=== PATIENT | male | born 1995 | race Caucasian/White ===

== ENCOUNTER 2021-02-02 15:35 | Emergency (ER) | payer OTHER, SELFPAY ==
[2021-02-02 15:42] VITALS: BP 119/68; PULSE 82; RESP 16; TEMP 36.6; O2SAT 100
--- NOTE | 2021-02-02 15:46 | ED.URI ---
HPI - URI/Sore Throat General Chief Complaint: Ear Stated Complaint: ear pressure Time Seen by Provider: 02/02/21 15:46 Source: patient and RN notes reviewed Mode of arrival: ambulatory Limitations: no limitations History of Present Illness HPI Narrative: Neeraj is a 25-year-old male patient who ambulated into the [facility] accompanied by his significant other. Patient has a 4-day history of right ear pain and pressure. Patient has chronic ear problems and has had 2 sets of tubes in the past. Patient denies any fever. Patient states he has had nasal congestion for the last few days. Patient has not been taking any yzuf-csh-fpepyix allergy medication; patient has used hot compress for pain relief. MD elicited complaint: nasal congestion and other (Ear pain) Related Data Allergies Allergy/AdvReac Type Severity Reaction Status Date / Time No Known Allergies Allergy Unverified 03/10/19 17:11 Review of Systems Review of Systems: CONSTITUTIONAL: Denies body aches, fever, chills, or sweats. EYES: Denies visual changes, redness, or discharge. ENT: + rhinorrhea, +congestion, sore throat,+ right otalgia. CARDIOVASCULAR: Denies chest pain, palpitations, or edema. RESPIRATORY: Denies cough or dyspnea. GASTROINTESTINAL: Denies abdominal pain, nausea, vomiting, or diarrhea. GENITOURINARY: Denies dysuria or hematuria. SKIN: Denies rash, itching, or wounds. MUSCULOSKELETAL: Denies back pain, joint pain, or myalgia. NEUROLOGIC: Denies headache, numbness, tingling, or weakness. PSYCH: Denies depression or anxiety. All systems reviewed & are unremarkable except as noted in HPI and below PMFSH Surgical History Surgical History Status post myringotomy with tube placement of both ears Comments At time of signature, I have reviewed and agree with nursing past medical, surgical, social and family history unless otherwise noted. Please see nursing chart for further information. There is no relevant family history pertinent to the presenting complaint Exam Narrative: GENERAL: Well-appearing, well-nourished, and in no acute distress. HEAD: Normocephalic, atraumatic. EYES: EOMI. No redness or drainage. Conjunctivae normal. ENT: Mucous membranes pink and moist. Nares clear. No rhinorrhea. Right tympanic membrane is erythemic and bulging with moderate amount of fluid. Left tympanic membrane is dull with minimal fluid and no erythema. Oropharynx is erythemic with minimal edema and moderate drainage. Uvula midline. NECK: Normal AROM. Supple. No lymphadenopathy. CHEST: No respiratory distress. Clear to auscultation. MUSCULOSKELETAL: No bony tenderness. EXTREMITIES: Normal range of motion. No edema. SKIN: Warm, dry, no rash. Capillary refill normal. Normal skin turgor. NEURO: No focal deficits. Alert and oriented x3. Gait steady. PSYCH: Normal affect. No signs of depression or anxiety. Course Vital Signs Vital signs: Vital Signs Temperature 36.6 C 02/02/21 15:42 Pulse Rate 82 02/02/21 15:42 Respiratory Rate 16 02/02/21 15:42 Blood Pressure 119/68 02/02/21 15:42 Pulse Oximetry 100 02/02/21 15:42 Temperature 36.6 C 02/02/21 15:42 Pulse Rate 82 02/02/21 15:42 Respiratory Rate 16 02/02/21 15:42 Blood Pressure 119/68 02/02/21 15:42 Pulse Oximetry 100 02/02/21 15:42 Reviewed MDM - URI/Sore Throat MDM Narrative Medical decision making narrative: Patient's right ear is erythemic and bulging. Patient has a long history of ear problems. Patient has had tympanostomy tubes x2 Differential Diagnosis Differential diagnosis: Likely upper respiratory infection, otitis media, viral infection and pharyngitis Medical Records Attestation: I reviewed the patient's medical records. Critical Care Time Critical Care Time Critical Care Time: No Discharge Plan Discharge Clinical Impression: Otitis media Qualifiers: Otitis media type: suppura
== END 2021-02-02 16:05 | disposition home or self-care (01) ==
PROVIDERS: Emergency Provider Nurse Practitioner Family
DX: H66.001 Acute suppurative otitis media without spontaneous rupture of ear drum, right ear (principal)
CPT/HCPCS: 99213; G0463

== ENCOUNTER 2023-03-07 16:43 | Emergency (ER) | payer OTHER, SELFPAY ==
[2023-03-07 16:48] VITALS: BP 138/82; PULSE 83; RESP 20; TEMP 36.4; O2SAT 99
--- NOTE | 2023-03-07 16:48 | ED.GENADULT ---
HPI - General Adult General Chief complaint: Upper Respiratory Infection Stated complaint: congestion/ears Time Seen by Provider: 03/07/23 16:55 Source: patient, RN notes reviewed and old records reviewed Mode of arrival: ambulatory Limitations: no limitations History of Present Illness HPI narrative: 28-year-old male presents to the [facility] with complaints of ear pain and congestion. Patient states the ear discomfort has been moving from ear to ear depending on the side he sleeps on. Recently treated with Augmentin he believes he started the prescription on the 23 of February. States the symptoms did not improve. Patient states that he took his left over children's decongestant this morning with no relief States that he was taking Claritin which was helping his symptoms however he ran out a week ago Related Data Allergies Allergy/AdvReac Type Severity Reaction Status Date / Time No Known Allergies Allergy Unverified 03/10/19 17:11 Review of Systems Review of Systems: All systems reviewed & are unremarkable except as noted in HPI and below Constitutional: Constitutional: Reports no additional constitutional complaints Eyes: Eyes: Reports no additional eye complaints ENT: Reports as per HPI, Reports otalgia, Reports nasal congestion and Reports nasal discharge Cardiovascular: Cardiovascular: Reports no additional cardiovascular complaints, Denies chest pain and Denies dyspnea Respiratory: Respiratory: Reports no additional respiratory complaints, Denies chest congestion, Denies cough and Denies dyspnea Gastrointestinal: Gastrointestinal: Reports no additional gastrointestinal complaints, Denies abdominal pain, Denies nausea and Denies vomiting Musculoskeletal: Musculoskeletal: Reports no additional musculoskeletal complaints Integumentary/Breasts: Skin/Breast: Reports system reviewed and no additional complaints, except as docu Neurologic: Reports system reviewed and no additional complaints, except as documented Psychiatric: Psychiatric: Reports no additional psychiatric complaints Allergic/Immunologic: Allergic/Immunologic: Reports no additional allergic/immunologic complaints PMFSH Surgical History Surgical History Status post myringotomy with tube placement of both ears Comments At the time of my signature, I reviewed and agree with the nursing past medical, surgical, social, and family history. There is no relevant family history pertinent to the patient complaint. Exam Const: General: cooperative, healthy appearing, comfortable, no acute distress, well developed, alert and well nourished Nutritional Appearance: well nourished Orientation/consciousness: patient oriented x3 Limitations: no limitations HENMT: Head: normal to inspection Ears: hearing grossly normal bilaterally, external ears normal and TM abnormal bulging bilateral, wth effusion serous bilateral and scarred bilateral (History of tubes); not erythematous and with no loss of landmarks Face/Nose/Sinus: Normal external nose present, Normal nares present, Normal nasal mucous membranes and turbinates present, normal facial exam and face symmetric Face and sinus: normal facial exam and face symmetric Mouth: Yes Normal oral and palatal mucosa present, Yes lip normal, Yes tongue normal and Yes moist mucous membranes Throat: posterior oropharynx normal, uvula midline and postnasal drainage Eyes: General: appearance normal, both eyes and all related structures Alignment and Position: alignment normal Periorbital: periorbital findings normal Pupils: Equal, round and reactive pupils present EOM: EOMs intact bilaterally Neck: Neck: normal visual inspection, full ROM, no lymphadenopathy and no meningeal signs Chest: Chest palpation & inspection: normal inspection of the chest Resp: Effort & Inspection: normal respiratory effort and able to speak in complete sentences Auscultation: clear to ausc
== END 2023-03-07 17:18 | disposition home or self-care (01) ==
PROVIDERS: Emergency Provider Nurse Practitioner
DX: J06.9 Acute upper respiratory infection, unspecified (principal); H65.03 Acute serous otitis media, bilateral
CPT/HCPCS: 99213; G0463

== ENCOUNTER 2023-07-19 11:59 | Emergency (ER) | payer OTHER, SELFPAY ==
[2023-07-19 12:07] VITALS: BP 113/72; PULSE 74; RESP 18; TEMP 36.2; O2SAT 99
--- NOTE | 2023-07-19 12:27 | ED.ABDPAIN ---
HPI - Abdominal Pain General Chief Complaint: Urogenital-Male Stated Complaint: Urinary Problem/Abdominal Pain Time Seen by Provider: 07/19/23 12:27 Source: patient, RN notes reviewed and old records reviewed Mode of arrival: ambulatory Limitations: no limitations History of Present Illness HPI narrative: 28-year-old male presents to the [facility] with multiple complaints. States for the last 2 days his right lower abdominal pain has been increasing. Reports it was worse this morning, states that it feels like ?menstrual cramps woman would have. ? Denies fevers Related Data Allergies Allergy/AdvReac Type Severity Reaction Status Date / Time No Known Allergies Allergy Unverified 03/10/19 17:11 Review of Systems Review of Systems: All systems reviewed & are unremarkable except as noted in HPI and below Constitutional: Constitutional: Reports no additional constitutional complaints Eyes: Eyes: Reports no additional eye complaints ENT: Reports system reviewed and no additional complaints, except as documented Cardiovascular: Cardiovascular: Reports no additional cardiovascular complaints, Denies chest pain and Denies dyspnea Respiratory: Respiratory: Reports no additional respiratory complaints, Denies chest congestion, Denies cough and Denies dyspnea Gastrointestinal: Gastrointestinal: Reports as per HPI, Reports abdominal pain, Reports nausea and Denies vomiting Musculoskeletal: Musculoskeletal: Reports no additional musculoskeletal complaints Integumentary/Breasts: Skin/Breast: Reports system reviewed and no additional complaints, except as docu Neurologic: Reports system reviewed and no additional complaints, except as documented Psychiatric: Psychiatric: Reports no additional psychiatric complaints Allergic/Immunologic: Allergic/Immunologic: Reports no additional allergic/immunologic complaints PMFSH Surgical History Surgical History Status post myringotomy with tube placement of both ears Comments At the time of my signature, I reviewed and agree with the nursing past medical, surgical, social, and family history. There is no relevant family history pertinent to the patient complaint. Exam Const: General: cooperative, healthy appearing, comfortable, no acute distress, well developed, alert and well nourished Nutritional Appearance: well nourished Orientation/consciousness: patient oriented x3 Limitations: no limitations HENMT: Head: normal to inspection Ears: hearing grossly normal bilaterally and external ears normal Face/Nose/Sinus: Normal external nose present, Normal nares present, Normal nasal mucous membranes and turbinates present, normal facial exam and face symmetric Face and sinus: normal facial exam and face symmetric Eyes: General: appearance normal, both eyes and all related structures Alignment and Position: alignment normal Periorbital: periorbital findings normal Pupils: Equal, round and reactive pupils present EOM: EOMs intact bilaterally Neck: Neck: normal visual inspection, full ROM, no lymphadenopathy and no meningeal signs Chest: Chest palpation & inspection: normal inspection of the chest Resp: Effort & Inspection: normal respiratory effort and able to speak in complete sentences Auscultation: clear to auscultation bilaterally, no crackles, no rales, no rhonchi and no wheezes Cardio: Rate: regular rate Rhythm: regular rhythm GI: GI Palp: Yes abdominal tenderness (Right lower quadrant), Yes Soft to palpation and No Guarding due to palpation present (GI) Auscultation: normal bowel sounds : General: Yes no CVA tenderness Skin: General skin exam: normal color and no rashes or lesions noted Lesions: no lesions Rashes: no rashes Wounds: no wounds Neuro: General: patient oriented x3, gait normal, tone normal, moves all extremities and no meningeal signs Cranial nerves: Yes Equal, round and reactive pupils present Cogniti
== END 2023-07-19 12:40 | disposition short-term general hospital (02) ==
LOC: EXPBETH 12:05
PROVIDERS: Emergency Provider Nurse Practitioner
DX: R10.31 Right lower quadrant pain (principal)
CPT/HCPCS: 99212; G0463

== ENCOUNTER 2023-12-10 09:54 | Emergency (ER) | payer SELFPAY ==
[2023-12-10 10:00] VITALS: BP 122/85; PULSE 92; RESP 16; TEMP 36.7; O2SAT 99
--- NOTE | 2023-12-10 10:14 | ED.URI ---
HPI - URI/Sore Throat General Chief Complaint: Upper Respiratory Infection Stated Complaint: Fever/Sore Throat History of Present Illness HPI Narrative: 28 year old male presented for complaint of sore throat, body aches and fever for 2 days. Taking Mucinex and ibuprofen. Denies shortness of breath, wheezing, nausea, vomiting or difficulty maintaining secretions. Denies known sick contacts. Related Data Allergies Allergy/AdvReac Type Severity Reaction Status Date / Time No Known Allergies Allergy Unverified 03/10/19 17:11 Review of Systems Review of Systems: CONSTITUTIONAL: reports body aches, fever, chills, sweats. EYES: Denies visual changes, redness, or discharge. ENT: reports sore throat Denies rhinorrhea, congestion, or otalgia. CARDIOVASCULAR: Denies chest pain, palpitations, or edema. RESPIRATORY: Denies dyspnea. GASTROINTESTINAL: Denies abdominal pain, nausea, vomiting, or diarrhea. SKIN: Denies rash, itching, or wounds. MUSCULOSKELETAL: Denies back pain, joint pain, or myalgia. NEUROLOGIC: Denies headache PMFSH Surgical History Surgical History Status post myringotomy with tube placement of both ears Social History Social History (Updated 12/10/23 @ 10:20 by Kerry Castellanos APRN) Substance use: current Substance use type: marijuana Exam Narrative: GENERAL: mildly Ill-appearing, no acute distress. EYES: conjunctivae clear ENT: Mucous membranes moist. TMs pearly de león with normal light reflex bilaterally; no tragal tenderness. Oropharynx severely erythematous Tonsils enlarged 3+ and without exudate. No drooling, no hoarseness, no trismus, uvula midline. No tripod positioning, hot potato voice, or soft palate swelling. CHEST: Clear to auscultation, breath sounds equal. No respiratory distress, speaks in full sentences. HEART: Regular rate and rhythm. No murmur heard. SKIN: Warm, dry, no rash. NEURO: Alert and oriented x3. Course Course Emergency Course: Patient is aware of diagnosis, understands and agrees to treatment plan. Anticipatory guidance given. Patient agrees to follow-up as directed and is aware of reasons to seek care at the emergency department. Portions of this record may have been created with voice recognition software Level of Care: Express Care Visit Vital Signs Vital signs: Vital Signs Temperature 98.1 F 12/10/23 10:00 Pulse Rate 92 12/10/23 10:00 Respiratory Rate 16 12/10/23 10:00 Blood Pressure 122/85 12/10/23 10:00 Pulse Oximetry 99 12/10/23 10:00 Oxygen Delivery Room Air 12/10/23 10:00 Temperature 98.1 F 12/10/23 10:00 Pulse Rate 92 12/10/23 10:00 Respiratory Rate 16 12/10/23 10:00 Blood Pressure 122/85 12/10/23 10:00 Pulse Oximetry 99 12/10/23 10:00 Oxygen Delivery Room Air 12/10/23 10:00 MDM - URI/Sore Throat MDM Narrative Medical decision making narrative: POS strep result reviewed with pt. Advise supportive treatments. Patient is appropriate for outpatient treatment and follow-up. Differential Diagnosis Differential diagnosis: Likely upper respiratory infection, viral infection and pharyngitis Lab Data Labs: Lab Results 12/10/23 Range/Units 10:00 POC Grp A Strep Screen Pending Discharge Plan Discharge Clinical Impression: Strep pharyngitis Patient Disposition: Home, Self-Care Condition: Stable Instructions: Antibiotic Form, Strep Throat (ED) Additional Instructions: - Take the antibiotic as directed. Fever and sore throat typically resolve within one to three days. Most patients can return to work, school, or daycare after 12 to 24 hours of antibiotic therapy, provided you are fever free and otherwise well. -Eat and drink things that are easy to swallow, like soft foods, cool liquids, tea with honey, or popsicles . -Salt water gargles and/or may use topical anesthetic ( Chloraseptic spray) or lozen
[2023-12-10 10:15] LABS: EDSTREPNEGPOS1 Positive (Negative)
== END 2023-12-10 10:23 | disposition home or self-care (01) ==
PROVIDERS: Emergency Provider Nurse Practitioner Family
DX: J02.0 Streptococcal pharyngitis (principal); F12.90 Cannabis use, unspecified, uncomplicated
CPT/HCPCS: 87880; 99213; G0463

== ENCOUNTER 2024-06-23 08:50 | Emergency (ER) | payer SELFPAY ==
[2024-06-23 08:58] VITALS: BP 140/81; PULSE 87; RESP 18; TEMP 36.5; O2SAT 99
--- NOTE | 2024-06-23 09:23 | ED.EAR ---
HPI - Ear Problem General Chief complaint: Ear Stated complaint: Ear Pain History of Present Illness HPI Narrative: Patient is 29-year-old male, past medical history significant for recurrent ear infections with 2 sets of tubes as a child, presents to [facility] with 2 day history of right otalgia, worse last night, waking him from sleep. He denies fevers or chills. He has felt as if he was experiencing some otorrhea but denies blood or trauma. he does have nasal congestion and some sinus pressure but that has been ongoing and attributes that to allergies. Is taking [id number] ibuprofen for symptom relief. He denies any additional associated symptoms or modifying factors. Related Data Allergies Allergy/AdvReac Type Severity Reaction Status Date / Time No Known Allergies Allergy Unverified 03/10/19 17:11 Review of Systems ENT: Comments: Refer [facility] Past Medical History Medical History (Updated 06/23/24 @ 09:31 by JANI Del Valle) GERD (gastroesophageal reflux disease) Surgical History Surgical History Status post myringotomy with tube placement of both ears Social History Social History Substance use: current Substance use type: marijuana Exam Const: General: cooperative, healthy appearing, comfortable and no acute distress Nutritional Appearance: average body habitus Orientation/consciousness: oriented to person, oriented to place and oriented to time HENMT: Head: normal to inspection Ears: external ears normal and TM abnormal ( right TM purulent effusion, bulging, erythematous. Left TM unremarkable) Face/Nose/Sinus: Normal external nose present Face and sinus: normal facial exam Mouth: Yes Normal oral and palatal mucosa present, Yes lip normal and Yes tongue normal Teeth and gingiva: dentition normal Throat: posterior oropharynx normal, tonsils normal and uvula midline Eyes: Periorbital: periorbital findings normal Eyelids: eyelids normal Conjunctivae: conjunctivae normal Sclera: sclerae normal Cornea: corneas normal EOM: EOMs intact bilaterally Neck: Neck: normal visual inspection, full ROM, no lymphadenopathy, no meningeal signs and trachea midline Thyroid: thyroid normal Lymphatic: no lymphadenopathy noted and no lymphedema noted Resp: Effort & Inspection: normal respiratory effort Auscultation: clear to auscultation bilaterally Percussion: percussion normal Cardio: Palpation: normal PMI Rate: regular rate Heart sounds: S1 normal heart sound present and S2 normal heart sound present Skin: General skin exam: normal color Lesions: no lesions Neuro: General: oriented to person, oriented to place, oriented to time, patient oriented x3 and gait normal Motor exam (neuro): 5/5 motor strength present throughout Extrem: General: normal to inspection Right upper extremity: normal to inspection Psych: Appearance: grossly normal Course Course Emergency Course: will treat with Augmentin for right otitis media, [id number] probiotics encouraged, follow-up with PCP and/or ENT if symptoms are not resolving in 3 days. Patient is agreeable with plan Level of Care: Express Care Visit ([id number]) Vital Signs Vital signs: Vital Signs Temperature 36.5 C 06/23/24 08:58 Pulse Rate 87 06/23/24 08:58 Respiratory Rate 18 06/23/24 08:58 Blood Pressure 140/81 06/23/24 08:58 Pulse Oximetry 99 06/23/24 08:58 Oxygen Delivery Room Air 06/23/24 08:58 Temperature 36.5 C 06/23/24 08:58 Pulse Rate 87 06/23/24 08:58 Respiratory Rate 18 06/23/24 08:58 Blood Pressure 140/81 06/23/24 08:58 Pulse Oximetry 99 06/23/24 08:58 Oxygen Delivery Room Air 06/23/24 08:58 Medical Decision Making MDM Narrative Medical decision making narrative: Augmentin b.i.d. for 10 days for right otitis media Differential Diagnosis Differential Diagnosis: otitis media, otitis externa, serous otitis media /eustachian tube dysfunction Vital Signs Vital Signs: Vital Signs Temperature 36.5 C 06/23/24 08:58 Pulse Rate 87 06/23/24 08:58 Respiratory Rate 18 06/23/24 08:58 Blood Pressure 140/81 06/23/24 08:58 Pulse Oximetry 99 06/23/24 08:58 Oxygen Delivery Room Air 06/23/24 08:58 Temperature 36.5 C 06/23/24 08:58 Pulse Rate 87 06/23/24 08:58 Respiratory Rate 18 06/23/24 08:58 Blood Pressure 140/81 06/23/24 08:58 Pulse Oximetry 99 06/23/24 08:58 Oxygen Delivery Room Air 06/23/24 08:58 Discharge Plan Discharge Clinical Impression: Otitis media Qualifiers: Otitis media type: suppurative Chronicity: acute Laterality: right Recurrence: non-recurrent Spontaneous tympanic membrane rupture: without spontaneous rupture Qualified Code(s): H66.001 - Acute suppurative otitis media without spontaneous rupture of ear drum, right ear Patient Disposition: Home Condition: Stable Instructions: Antibiotic Form, Ear Infection (ED) Additional Instructions: COMPLETE ANTIBIOTICS PRESCRIBED. TAKE WITH PROBIOTIC TO REDUCE GI SIDE EFFECTS. SEE YOUR PRIMARY DOCTOR OR ENT FOR FOLLOW-UP IN 3 DAYS IF SYMPTOMS NOT IMPROVING Patient Language: Estonian Prescriptions: New amoxicillin-pot clavulanate 875-125 mg tablet 1 tablet PO Q12H Qty: 20 0RF Follow-up/Referrals: PHYSICIAN,VISUAL MERCHANDISING DIRECTOR [Primary Care Provider] - Stand Alone Forms: Work/School Release IP Time of Disposition: 09:32
--- OUTSIDE RECORDS SUMMARY | 2024-06-23 09:24 | XMS_ITS | Clinical Summary ---
Author Organization [facility] Address [address] [place] [address] Care Team Providers Care Machine Marker Name Role Phone No, Physician Primary Care Provider [phone] Allergies No known active allergies Medications No known medications Active Problems Problem Noted Date Diagnosed Date Laceration of right upper extremity 11/26/2019 Assessment & Plan (12/21/2019 12:51 PM CDT): Sutures were removed. He does have small seroma to the large mid right forearm lac site. 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 Assessment & Plan (11/26/2019 2:38 PM CDT): The wound appears to be healing well. The Steri-Strips will fall off on their own in another week or so. He is inquiring about returning to work. As long as he covers the area and can minimize how much lifting and straining he is doing with the right arm he can go back from my standpoint. They have a physician on staff where he works that will also evaluate him to give him limitations based on the injury. He will call us for any further questions or concerns. 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 Gender Identity Not on file Sexual Orientation Not on file Obstetrics History Last Filed Vital Signs Vital Sign Reading Time Taken Comments Blood Pressure 113/71 11/26/2019 11:32 AM CDT Pulse 72 11/26/2019 11:32 AM CDT Temperature 36.2 C (97.2 F) 11/26/2019 11:32 AM CDT Respiratory Rate 18 11/17/2019 10:4 7 PM CDT Oxygen Saturation 96% 11/26/2019 11: 32 AM CDT Inhaled Oxygen Concentration - - Weight 76.5 kg (168 lb 11.2 oz) 020 11:32 AM CDT Height 188 cm (6' 2 ) 11/26/2019 11:32 AM CDT Body Mass Index 21.66 11/26/2019 11:32 AM CDT Plan of Treatment Not on file Care Teams Machine Marker Relationship Specialty Start Date End Date No, Physician PCP - General 11/17/19
--- OUTSIDE RECORDS SUMMARY | 2024-06-23 09:24 | XMS_ITS | Clinical Summary ---
Author Organization [facility] Address [address] [place] [address] Phone Care Team Providers Care Special Certificate Dictator Name Role Phone Provider, None Primary Care Provider Unavailabl e Allergies No known active allergies Medications omeprazole (PriLOSEC) 20 MG CAPSULE DELAYED RELEASE Take 1 Capsule by mouth daily. 30 Capsule 05/13/2023 Active ondansetron (ZOFRAN-ODT) 4 MG TABLET DISPERSIBLE Take 1 Tablet by mouth every 8 hours as needed for Nausea - 1st line. 10 Tablet 05/13/2023 Active dicyclomine (BENTYL) 20 MG Tablet Take 1 Tablet by mouth every 6 hours. 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 Sexual Orientation Not on file Last Filed Vital Signs Vital Sign Reading Time Taken Comments Blood Pressure 127/80 07/19/2023 3:45 PM CDT Pulse 76 07/19/2023 3:45 PM CDT Temperature 36.2 C (97.1 F) 07/19/2023 3:45 PM CDT Respiratory Rate 16 07/19/2023 3:45 PM CDT Oxygen Saturation 98% 07/19/2023 3:45 PM CDT Inhaled Oxygen Concentration - - Weight 90.7 kg (200 lb) 07/19/2023 1:31 PM CDT Height 188 cm (6' 2 ) 07/19/2023 1:31 PM CDT Body Mass Index 25.68 07/19/2023 1:31 PM CDT Plan of Treatment Health Maintenance Due Date Last Done Comments Hepatitis C Virus (HCV) Screening 1996 Pneumococcal Immunization Combined (1 of 2 - PCV) 02/18/2015 Influenza Immunization (#1) 2023 SARS-COV-2 Immunization ( - season) 2023 Respiratory Syncytial Virus (RSV) Immunization (Adult) (1 - 1-dose 75+ series) 02/18/2071 Hepatitis B Immunization Completed 997, 1996, 1996 DTaP/Tdap/Td Immunization Discontinued 2019, 09/28/1997, 1996, Additional history exists TdaP Immunization Completed 11/17/2019 Meningococcal Immunization (ACWY) Aged Out No longer eligible based on patient's age to complete this topic Rotavirus Immunization Aged Out No lo nger eligible based on patient's age to complete this topic Insurance [facility] Care Teams Special Certificate Dictator Relationship Specialty Start Date End Date Provider, None [place] PCP - General 05/06/23
--- OUTSIDE RECORDS SUMMARY | 2024-06-23 09:24 | XMS_ITS | Continuity of Care Document ---
Author Organization [facility] Address [address] [place] [address] [place] [address] Phone Care Team Providers Care Workers Compensation Administrator Name Role Phone Tony Gomez MD Unavailable Unavailable Advance Directives Directive Yes / No Effective Date File Name No Information Encounters Encounter Description Practice Location Reason(s) For Visit Diagnoses Date Provider Providers Copied on Encounter [facility], [address] [place], [place], [id number], [place] tel:[phone] [facility] No Information Jason Jimenez. [address] [place], [place], [id number], [place]. tel:[phone] Family History Family Member Type Diagnosis Age At Onset No Information Payers Payer name Insurance type Covered libertarian ID Authoriza tion(s) No Information Social History Type Description Quantity Date Captured Comments Sex Male Smoking Status No Information Chief Complaint And Reason For Visit No Information Plan Of Treatment Date Type Action Status No Information History Of Present Illness Encounter Date Complaint History Of Prese nt Illness No Information Instructions Date Instruction Additional Infor mation No Information Assessments Type Assessment Date No Information
--- OUTSIDE RECORDS SUMMARY | 2024-06-23 09:24 | XMS_ITS | Referral Summary ---
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
--- OUTSIDE RECORDS SUMMARY | 2024-06-23 09:28 | XMS_ITS | Continuity of Care Document ---
Author Organization [facility] Address [address] [place] [address] [place] [address] Phone Care Team Providers Care Private Branch Exchange Service Adviser Name Role Phone Tony Gomez MD Unavailable Unavailable Advance Directives Directive Yes / No Effective Date File Name No Information Encounters Encounter Description Practice Location Reason(s) For Visit Diagnoses Date Provider Providers Copied on Encounter [facility], [address] [place], [id number], [place] tel:[phone] [facility] No Information Jason Jimenez. [address] [place], [place], [id number], [place]. tel:[phone] Family History Family Member Type Diagnosis Age At Onset No Information Payers Payer name Insurance type Covered alliance party ID Authoriza tion(s) No Information Social History [...]
== END 2024-06-23 09:38 | disposition home or self-care (01) ==
PROVIDERS: Emergency Provider Nurse Practitioner Family
DX: H66.001 Acute suppurative otitis media without spontaneous rupture of ear drum, right ear (principal); F12.90 Cannabis use, unspecified, uncomplicated; K21.9 Gastro-esophageal reflux disease without esophagitis; Z96.22 Myringotomy tube(s) status
CPT/HCPCS: 99213; G0463

== ENCOUNTER 2025-01-13 09:27 | Emergency (ER) | payer OTHER, SELFPAY ==
[2025-01-13 09:35] VITALS: BP 119/73; PULSE 90; RESP 16; TEMP 36.5; O2SAT 99
--- NOTE | 2025-01-13 09:54 | ED_ITS ---
HPI - General Adult General Chief complaint: Anxiety Stated complaint: Sore Throat/Anxiety Time Seen by Provider: 01/13/25 09:50 Source: patient, family, RN notes reviewed and old records reviewed Mode of arrival: ambulatory Limitations: no limitations History of Present Illness HPI narrative: 29 year old male accompanied by family member presents to express care with complaints of have sorfe throat nasal drainage and left ear pain for the past 2 days. Patient also reports that he has been trying to deal with increase anxiety over stress at home. He states that 's father had a stroke recently and went over to [place] with her mother to stay close to hospital and just has been added stress trying to deal with getting daughter to school and working. Patient is tearful while talking about home situation. MD complaint: throat, nasal congestion and drainage, and left ear pain, increased anxiety Onset (ago): day(s) (2) Location: head (left ear and sinus congestion) and mouth (throat) Related Data Allergies Allergy/AdvReac Type Severity Reaction Status Date / Time No Known Allergies Allergy Verified 01/13/25 09:48 Review of Systems Review of Systems: CONSTITUTIONAL: Denies fever, chills, or sweats. EYES: Denies visual changes, redness, or discharge. ENT: reports rhinorrhea, congestion, sore throat, left otalgia. CARDIOVASCULAR: Denies chest pain, palpitations, or edema. RESPIRATORY: Denies cough or dyspnea. GASTROINTESTINAL: Denies abdominal pain, nausea, vomiting, or diarrhea. GENITOURINARY: Denies dysuria or hematuria. SKIN: Denies rash or itching. MUSCULOSKELETAL: Denies back pain, joint pain, or myalgia. NEUROLOGIC: Denies headache, numbness, or weakness. PSYCHIATRIC: Reports anxiety or depression. All systems reviewed & are unremarkable except as noted in HPI and below PMFSH Past Medical History Medical History GERD (gastroesophageal reflux disease) Surgical History Surgical History Status post myringotomy with tube placement of both ears Social History Social History Smoking status: Never smoker Substance use: current Substance use type: marijuana Comments At time of signature, agree with nursing past medical, surgical, social and family history. There is no relevant family history pertinent to the presenting complaint Exam Narrative: GENERAL: Well-appearing, well-nourished, and in no acute distress. HEAD: Normocephalic, atraumatic. EYES: PERRLA and EOMI ENT: Nares clear, clear rhinorrhea no epistaxis. Mucous membranes moist.Left TM red with canal excoriated no drainage noted, right TM normal with good light reflex, Throat red with mild swelling of tonsils some post nasaldrainage noted. NECK: Supple.no lymphadenopathy CHEST: Clear to auscultation. No respiratory distress.no cough noted SAO2 99% on room air HEART: Regular rate and rhythm. No murmur heard. Normal peripheral pulses. ABDOMEN: Soft, nontender, nondistended, normal active bowel sounds. EXTREMITIES: Normal range of motion. No edema. SKIN: Warm, dry, no rash. NEURO: No focal deficits. Alert and oriented x3.anxious and tearful over stress at home Course Course Emergency Course: Patient is aware of diagnosis, understands and agrees to treatment plan.? Anticipatory guidance given.? Patient agrees to follow-up as directed and is aware of reasons to seek care at the emergency department. Portions of this record may have been created with voice recognition software Level of Care: Express Care Visit Vital Signs Vital signs: Vital Signs Temperature 36.5 C 01/13/25 09:35 Pulse Rate 90 01/13/25 09:35 Respiratory Rate 16 01/13/25 09:35 Blood Pressure 119/73 01/13/25 09:35 Pulse Oximetry 99 01/13/25 09:35 Oxygen Delivery Room Air 01/13/25 09:35 Temperature 36.5 C 01/13/25 09:35 Pulse Rate 90 01/13/25 09:35 Respiratory Rate 16 01/13/25 09:35 Blood Pressure 119/73 01/13/25 09:35 Pulse Oximetry 99 01/13/25 09:35 Oxygen Delivery Room Air 01/13/25 09:35 Reviewed Medical Decision Making MDM Narrative Medical decision making narrative: Exam findings and imaging show no acute concerns or changes; patient is non- toxic appearing and is in no distress.? Patient is appropriate for outpatient treatment and follow-up Differential Diagnosis Differential Diagnosis: URI, pharyngitis,left otitis media, otitis externa, acute anxiety. Medical Records Medical records reviewed: Yes I reviewed the external patient's medical records. Vital Signs Vital Signs: Vital Signs Temperature 36.5 C 01/13/25 09:35 Pulse Rate 90 01/13/25 09:35 Respiratory Rate 16 01/13/25 09:35 Blood Pressure 119/73 01/13/25 09:35 Pulse Oximetry 99 01/13/25 09:35 Oxygen Delivery Room Air 01/13/25 09:35 Temperature 36.5 C 01/13/25 09:35 Pulse Rate 90 01/13/25 09:35 Respiratory Rate 16 01/13/25 09:35 Blood Pressure 119/73 01/13/25 09:35 Pulse Oximetry 99 01/13/25 09:35 Oxygen Delivery Room Air 01/13/25 09:35 reviewed Lab Data Lab results reviewed: Yes I reviewed the patient's lab results. Lab results narrative: strep screen negative culture sent Labs: Lab Results 01/13/25 Range/Units 10:30 POC Grp A Strep Screen Negative (Negative) reviewed Critical Care Time Critical Care Time Critical Care Time: No Discharge Plan Discharge Clinical Impression: Pharyngitis, Otitis media, Otitis externa, Acute anxiety Patient Disposition: Home Condition: Stable Instructions: Antibiotic Form, Ear Infection (ED), Anxiety (ED) Additional Instructions: Increase fluids especially juices and water [id number] cough and cold medicine of your choice for your symptoms Zyrtec Claritin or Tiffani daily continue your Flonase as prescribed antibiotics as prescribed complete all doses antibiotic ear drops to left ear for 7 days heat to the face 20-30 minutes 4-6 times a day for pain Salt water gargles, throat lozenges or throat sprays as desired start Zoloft 50 mg daily must make follow-up appointment with your PCP for any further prescriptions and adjustment hydroxyzine 25 mg up to 2 times daily as needed for acute anxiety can't drive while taking will make you sleepy Absolute no alcohol If your symptoms persist, change or worsen significantly before you can contact your personal physician then please, without delay, go to the emergency department for further evaluation. Follow-up with PCP in 7-10 days or sooner if needed Patient Language: Maltese Prescriptions: New hydroxyzine HCl 25 mg tablet 25 mg PO BID PRN (Reason: anxiety) Qty: 10 0RF sertraline [Zoloft] 50 mg tablet 50 mg PO DAILY Qty: 30 0RF Rx Instructions: take at bedtime any further refills and adjustments by PCP ofloxacin 0.3 % drops 5 drp LEFT EAR BID 7 Days Qty: 10 0RF amoxicillin 500 mg capsule 1,000 mg PO Q12H 10 Days Qty: 40 0RF Follow-up/Referrals: UNKNOWN,DOCTOR [Primary Care Provider] Stand Alone Forms: Work/School Release IP Time of Disposition: 10:38 Quality [place] Coma Scale Eyes: Open Verbal: Oriented and Alert Motor: Follows Commands [place] Coma Total Score: 15
--- OUTSIDE RECORDS SUMMARY | 2025-01-13 10:17 | XMS_ITS | Clinical Summary ---
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
--- OUTSIDE RECORDS SUMMARY | 2025-01-13 10:17 | XMS_ITS | Clinical Summary ---
Author Organization [facility] Address [address] [place] [address] Phone Care Team Providers Care Auto Painter Helper Name Role Phone Jewel Nance Primary Care Provider [phone] Allergies No known active allergies Medications fluticasone (FLONASE) 50 MCG/ACT Suspension use 2 sprays in each nostril twice daily 07/03/2024 Active omeprazole (PriLOSEC) 40 MG CAPSULE DELAYED RELEASEIndicatio ns:Gastroesophag eal reflux disease without esophagitis Take 1 Capsule by mouth daily. 90 Capsule 10/02/2024 Active famotidine (PEPCID) 20 MG TabletIndication s:Gastroesophage al reflux disease without esophagitis Take 1 Tablet by mouth nightly. 90 Tablet 10/02/2024 Active Active Problems No known active problems Immunizations Immunization Administration Dates Next Due DTAP VACCINE 09/28/1997 DTP-Hib 1996,1996,1996 Hepatitis B Vaccine, Pediatric/adolescent 1996,1996,1996 Hib Vaccine,unspecified Formulation 05/07/1997 MMR Vaccine 05/07/1997 OPV 1996,1996,1996 TDAP Vaccine 11/17/2019 Family History Medical History Relation Name Comments No Known Problems Maternal Grandfather Alzheimer's Disease Maternal Grandmother Breast Cancer Maternal Grandmother Cancer Maternal Grandmother Dementia Maternal Grandmother Alzheimer's Disease Paternal Grandfather Dementia Paternal Grandfather Cancer Paternal Grandmother Diabetes Paternal Grandmother Relation Name Status Comments Father Alive Maternal Grandfather Alive Maternal Grandmother Alive Mother Alive Paternal Grandfather Alive Paternal Grandmother Alive Social History Tobacco Use Types Packs/Day Years Used Date Smoking Tobacco: Some Days Cigarettes Smokeless Tobacco: Never Tobacco Cessation:Ready to Q uit: No; Counseling Given: Yes Comments:Nicotine pouch Alcohol Use Standard Drinks/Week Comments Yes 6 (1 standard drink = 0.6 oz pur e alcohol) PHQ-2 Answer Date Recorded Total Score - Questions 1-9 7 03/2024 AUDIT-C Answer Date Recorded Q1: How often do you have a drink containing alc ohol? 2-3 times a week 09/24/2024 Q2: How many drinks containi ng alcohol do you have on a typical day when you are drinking? 3 or 4 09/24/2024 Q3: How often do you have si x or more drinks on one occasion? 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 on file Not on file Not on file Last Filed Vital Signs Vital Sign Reading Time Taken Comments Blood Pressure 96/52 10/02/2024 2:31 PM CDT Pulse 59 10/02/2024 2:31 PM CDT Temperature 36.9 C (98.4 F) 10/02/2024 2:31 PM CDT Respiratory Rate 16 10/02/2024 2:31 PM CDT Oxygen Saturation 98% 10/02/2024 2:31 PM CDT Inhaled Oxygen Concentration - - Weight 79.4 kg (175 lb) 10/02/2024 2:31 PM CDT Height 185.4 cm (6' 1) 08/18/2024 11:48 AM CDT Body Mass Index 23.09 08/18/2024 11:48 AM CDT Plan of Treatment Upcoming Encounters Date Type Department Care Team (Late st Contact Info) Description 10/04/2025 2:30 PM CDT Office Visit [facility] [place] [address] [place] [address] Jewel Nance PAC [address] [place] [address] Health Maintenance Due Date Last Done Comments Hepatitis C Virus (HCV) Screening 1996 Pneumococcal Immunization Combined (1 of 2 - PCV) 02/18/2015 Human Papillomavirus (HPV) Immunization (1 - 3-dose SCDM series) 02/18/2023 Influenza Immunization (#1) 2024 SARS-COV-2 Immunization ( - season) 2024 DTaP/Tdap/Td Immunization (6 - Td or Tdap) 11/16/2029 11/17/2019, 09/28/1997, 1996, Additional history exists Respiratory Syncytial Virus (RSV) Immunization (Adult) (1 - 1-dose 75+ series) 02/18/2071 Hepatitis B Immunization Completed 997, 1996, 1996 TdaP Immunization Discontinued 11/17/2019 Meningococcal Immunization (ACWY) Aged Out No longer eligible based on patient's age to complete this topic Rotavirus Immunization Aged Out No lo nger eligible based on patient's age to complete this topic Insurance [facility] Care Teams Auto Painter Helper Relationship Specialty Start Date End Date Jewel Nance PAC [address] [place], [place] [address] PCP - General Physician Neuro Ophthalmologist 10/02/24
[2025-01-13 10:32] LABS: EDSTREPNEGPOS1 Negative (Negative)
== END 2025-01-13 10:43 | disposition home or self-care (01) ==
PROVIDERS: Emergency Provider Registered Nurse
DX: H66.90 Otitis media, unspecified, unspecified ear (principal); H60.90 Unspecified otitis externa, unspecified ear; F41.9 Anxiety disorder, unspecified; J02.9 Acute pharyngitis, unspecified
CPT/HCPCS: 87081; 87880; 99213; G0463